=== PATIENT | female | born 1960 | race Caucasian/White ===

== ENCOUNTER 2020-05-25 13:46 | Outpatient (CLI) | payer OTHER ==
--- NOTE | 2020-05-25 14:32 | BD ---
Exam: DEXA Bone Density 05/25/20 PROVIDED CLINICAL HISTORY: Screening. FINDINGS: BMD (g/cm2) T-SCORE Right femoral neck 0.576 -2.5 Total: 0.839 -0.8 Left femoral neck 0.598 -2.3 Total: 0.774 -1.4 Impression: Calculated bone mineral density meets WHO criteria for osteoporosis in the right femoral neck and josh natali the patient at prominent increased risk for fracture. POS: [facility]ESS[facility]
== END 2020-05-25 13:47 | disposition home or self-care (01) ==
LOC: BICMAMMO 13:46
PROVIDERS: ATTEND Obstetrics & Gynecology
DX: M81.0 Age-related osteoporosis without current pathological fracture (principal); M85.80 Other specified disorders of bone density and structure, unspecified site; Z79.890 Hormone replacement therapy
CPT/HCPCS: 77080

== ENCOUNTER 2021-03-07 09:22 | Outpatient (CLI) | payer OTHER | END 2021-03-07 09:23 | disposition home or self-care (01) | LOC: BICMAMMO 09:22 | PROVIDERS: ATTEND Nurse Practitioner Family | DX: N63.10 Unspecified lump in the right breast, unspecified quadrant (principal); N63.20 Unspecified lump in the left breast, unspecified quadrant | CPT/HCPCS: 77066; G0279 ==